=== PATIENT | female | born 1960 | race African-American/Black ===

== ENCOUNTER 2023-06-03 22:15 | Emergency (ER) | payer BC, MEDICAID ==
[~2023-06-03] VITALS: Ht 157.5 cm; Wt 63.0 kg
[~2023-06-03 22:15] MED LIST: METO-293 MT; OMEP20TA23 MT
[2023-06-03 22:45] VITALS: BP 132/96; PULSE 68; RESP 18; TEMP 98.4; O2SAT 97
[2023-06-04] MEDS ORDERED: CYCL5TAB MT (00:14)
[2023-06-04] MEDS ORDERED: LIDO1ADH16 TP (00:15)
[2023-06-04] MEDS: KETOROLAC 60MG/2ML VIAL IM ONE (01:34)
[2023-06-04] MEDS: DEXAMETHASONE 4MG TABLET PO SCH (01:35)
== END 2023-06-04 04:08 | disposition home or self-care (01) ==
LOC: ER 22:15
DX: M54.50 Low back pain, unspecified (principal); G89.29 Other chronic pain; F41.9 Anxiety disorder, unspecified; I10 Essential (primary) hypertension
CPT/HCPCS: 99283; 96372; J8540; J1885